=== PATIENT | female | born 1975 | race Caucasian/White ===

== ENCOUNTER 2017-04-21 01:27 | Emergency (ER) | payer SELFPAY ==
[2017-04-21] MEDS: AMOXICILLIN (TRIHYDRATE) 500 MG CAP PO (03:08)
== END 2017-04-21 03:36 | disposition home or self-care (01) ==
LOC: NEPE 01:27
DX: J02.0 Streptococcal pharyngitis (principal); E11.9 Type 2 diabetes mellitus without complications; Z72.0 Tobacco use; Z79.84 Long term (current) use of oral hypoglycemic drugs
CPT/HCPCS: 71046; 87804; 87804-59; 87880; 99284